=== PATIENT | male | born 1990 | race Caucasian/White ===

== ENCOUNTER 2017-03-26 13:38 | Emergency (ER) | payer OTHER ==
[2017-03-26] MEDS ORDERED: Sodium Chloride 0.9% 1,000 ML PRIMARY IV ONE (13:48)
[2017-03-26] MEDS ORDERED: NORMAL SALINE 10 ML SYRINGE FLUSH IVP PRN ×2 (13:48)
[2017-03-26 14:01] LABS: BASOPHILS # (AUTO) 0.04 10*3/UL; BASOPHILS % (AUTO) 0.6 % (0-1); EOSINOPHILS # (AUTO) 0.11 10*3/UL; EOSINOPHILS % (AUTO) 1.7 % (0-8); HEMATOCRIT 48.7 % (42.0-52.0); LYMPHOCYTES # (AUTO) 1.59 10*3/uL; MEAN CORPUSCULAR HEMOGLOBIN 29.5 PG (27-31); MEAN CORPUSCULAR HGB CONC 34.9 g/dL (33-37); MEAN CORPUSCULAR VOLUME 84.4 FL (80-90); MEAN PLATELET VOLUME 10.2 FL (7.4-12.2); MONOCYTES # (AUTO) 0.37 10*3/UL (0.3-0.8); MONOCYTES % (AUTO) 5.8 % (5-15); NEUTROPHILS # (AUTO) 4.29 10*3/UL; NEUTROPHILS % (AUTO) 66.7 % (50-80); RED BLOOD COUNT 5.77 10^6/uL (4.70-6.10)
[2017-03-26 14:02] LABS: PLATELET MORPHOLOGY COMMENT NORMAL MORPHOLOGY (NORM); RBC MORPHOLOGY COMMENT NORMAL MORPHOLOGY (NORM); WBC MORPHOLOGY COMMENT NORMAL MORPHOLOGY (NORM)
[2017-03-26 14:09] LABS: BLOOD UREA NITROGEN 17 mg/dL (7-22); BUN/CREATININE RATIO 18.88 (6-20); CALCIUM 9.2 mg/dL (8.7-10.7); EST GLOMERULAR FILTRATION > 60 (>60 ml/min/1.73m(2)); SERUM ALBUMIN 4.5 g/dL (3.5-4.8)
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
--- NOTE | 2017-03-26 14:28 | EKG ---
[address] [address] Measurements Intervals Leroy Rate: 77 P: 69 ID: [id number] QRS: 42 QRSD: 105 T: 71 QT: 361 QTc: 393 Interpretive Statements SINUS RHYTHM No previous ECG available for comparison Electronically Signed On 03-26-17 16:38:57 MDT by Christian Cruz [email or web address]
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
[2017-03-26] MEDS ORDERED: ONDANSETRON 4 MG/2 ML VIAL ONE (15:08)
[2017-03-26] MEDS ORDERED: MORPHINE SULFATE 4 MG/1 ML ONE (15:09)
[2017-03-26] MEDS ORDERED: MORPHINE SULFATE 4 MG/1 ML IVP ONE (15:30)
[2017-03-26] MEDS ORDERED: ONDANSETRON 4 MG/2 ML VIAL IVP ONE (15:30)
[2017-03-26] MEDS ORDERED: Sodium Chloride 0.9% 1,000 ML ONE (18:02)
== END 2017-03-26 15:20 | disposition short-term general hospital (02) ==
LOC: ER 13:38
DX: S12.091A Other nondisplaced fracture of first cervical vertebra, initial encounter for closed fracture (principal); S12.120A Other displaced dens fracture, initial encounter for closed fracture; M54.2 Cervicalgia; M25.511 Pain in right shoulder; V48.6XXA Car passenger injured in noncollision transport accident in traffic accident, initial encounter
CPT/HCPCS: 70450; 71260; 72125; 73030; 74177; 80053; 82150; 83605; 85025; 85610; 86850; 86900; 86901; 93005; 93010; 96374; 96375; 99284; J2270; J2405; J7030